=== PATIENT | male | born 1965 | race Caucasian/White ===

== ENCOUNTER 2023-01-20 12:44 | Inpatient (IN) | payer OTHER ==
[~2023-01-20] VITALS: Ht 182.9 cm; Wt 119.0 kg
[2023-01-20 12:49] VITALS: BP_SYST 159; PULSE 99; RESP 22; TEMP 98.3; O2SAT 95
[2023-01-20 13:10] LABS: BASOPHILS # (AUTO) 0.1 K/uL (0.0-0.2); BASOPHILS % (AUTO) 1.1 % (0.0-2.0); EOSINOPHILS # (AUTO) 0.2 K/uL (0.0-0.4); EOSINOPHILS % (AUTO) 2.4 % (0.0-4.0); HEMATOCRIT 46.7 % (36-54); HEMOGLOBIN 15.7 g/dL (14.0-18.0); LYMPHOCYTES # (AUTO) 1.6 K/uL (1.0-5.5); LYMPHOCYTES % (AUTO) 17.6 % (20.5-51.5); MEAN CORPUSCULAR HEMOGLOBIN 29 pg (27-31); MEAN CORPUSCULAR HGB CONC 34 % (32-36); MEAN CORPUSCULAR VOLUME 87 fL (79.0-98.0); MONOCYTES # (AUTO) 0.8 K/uL (0.0-1.0); MONOCYTES % (AUTO) 9.1 % (1.7-9.3); NEUTROPHILS # (AUTO) 6.5 K/uL (1.8-7.7); NEUTROPHILS % (AUTO) 69.8 % (40.0-70.0); PLATELET COUNT (AUTO) 203 K/uL (130-430); RED BLOOD CELL COUNT(AUTO) 5.36 MIL/uL (4.2-6.2); RED CELL DISTRIBUTION WIDTH 13.8 % (9.0-15.0); WHITE BLOOD COUNT (AUTO) 9.3 K/uL (4.8-10.8)
[2023-01-20 13:28] LABS: ANION GAP 10 (5-15); CALCIUM 7.8 mg/dL (8.4-11.0); CARBON DIOXIDE 25 mmol/L (23-29); CHLORIDE 104 mmol/L (98-107); CREATININE 0.93 mg/dL (0.55-1.30); GFR AFRICAN AMERICAN 108 mL/min (>90); GLUCOSE 93 mg/dL (74-106); POTASSIUM 3.7 mmol/L (3.5-5.1); SODIUM SERUM 139 mmol/L (136-145); UREA NITROGEN, BLOOD 14 mg/dL (8-21)
[2023-01-20 13:32] LABS: GFR NON AFRICAN-AMERICAN 89 mL/min (>90)
[2023-01-20 13:35] LABS: ALANINE AMINOTRANSFERASE 16 U/L (12-78); ALBUMIN 3.4 g/dL (3.4-4.8); ASPARTATE AMINOTRANSFERASE 16 U/L (10-37); TOTAL BILIRUBIN 0.5 mg/dL (0.0-1.0); TOTAL PROTEIN, SERUM 6.8 g/dL (6.4-8.3)
[2023-01-20] MEDS ORDERED: NITROGLYCERIN 1 INCH (GM) OINT. TP ONE (14:00)
[2023-01-20] MEDS ORDERED: FUROSEMIDE 40 MG/4 ML VIAL IVP ONE (14:00)
[2023-01-20] MEDS ORDERED: ACETAMINOPHEN 500 MG TABLET PO PRN (14:45)
[2023-01-20] MEDS ORDERED: NITROGLYCERIN 0.4 MG TAB.SUBL SL PRN (14:45)
[2023-01-20] MEDS ORDERED: INSULIN REGULAR, HUMAN 100 UNITS/ML, 3 ML VIAL (humuLIN R) SUBCUT PRN (14:45)
[2023-01-20] MEDS ORDERED: ONDANSETRON HCL 4 MG/2 ML VIAL IVP PRN (14:45)
[2023-01-20] MEDS ORDERED: hydrALAZINE HCL 20 MG/ML VIAL IVP PRN (14:45)
[2023-01-20] MEDS ORDERED: HYDR2TAB4 PO ×2 (18:17→18:21)
[2023-01-20] MEDS ORDERED: SULF500T60 PO (18:17)
[2023-01-20] MEDS ORDERED: AMLO5TAB92 PO (18:17)
[2023-01-20] MEDS ORDERED: TAMS-11 PO (18:17)
[2023-01-20] MEDS ORDERED: GABA-531 PO ×2 (18:17→18:21)
[2023-01-20] MEDS ORDERED: TIOT4MIS3 INH (18:17)
[2023-01-20] MEDS ORDERED: LEVO150C2 PO (18:17)
[2023-01-20] MEDS ORDERED: TIZA-198 PO (18:17)
[2023-01-20] MEDS ORDERED: OMEP40CA20 PO (18:17)
[2023-01-20] MEDS ORDERED: ALBMDI INH (18:23)
[2023-01-20 20:00] VITALS: BP_SYST 141; PULSE 85; RESP 18; TEMP 98; O2SAT 98
[2023-01-20] MEDS: hydrALAZINE HCL 25 MG TABLET PO SCH (21:00)
[2023-01-20] MEDS: FUROSEMIDE 20 MG/2 ML VIAL IVP SCH (21:00)
[2023-01-20] MEDS ORDERED: GABAPENTIN 300 MG CAPSULE PO ONE (23:15)
[2023-01-20] MEDS ORDERED: ZOLPIDEM TARTRATE 5 MG TABLET PO ONE (23:15)
[2023-01-20] MEDS ORDERED: HYDROmorphone 2 MG TAB PO ONE (23:15)
[2023-01-20] MEDS ORDERED: OMEPRAZOLE Non-Formulary 20 MG CAPSULE.DR PO ONE (23:15)
[2023-01-20] MEDS ORDERED: tiZANidine HCL 4 MG TABLET PO ONE (23:15)
[2023-01-21] VITALS: BP_SYST 135; PULSE 76; RESP 18; TEMP 98.2; O2SAT 99
[2023-01-21] MEDS ORDERED: LEVOTHYROXINE SODIUM 0.025 MG TABLET PO SCH (07:00)
[2023-01-21 08:00] VITALS: BP_SYST 144; PULSE 85; RESP 18; TEMP 97.3; O2SAT 95
[2023-01-21] MEDS ORDERED: TAMSULOSIN HCL 0.4 MG CAP PO SCH (09:00)
[2023-01-21] MEDS ORDERED: PANTOPRAZOLE SODIUM 40 MG TAB PO SCH (09:00)
[2023-01-21] MEDS ORDERED: GABAPENTIN 300 MG CAPSULE PO SCH (09:00)
[2023-01-21] MEDS ORDERED: sulfaSALAzine 500 MG TABLET PO SCH (09:00)
[2023-01-21] MEDS ORDERED: ASPIRIN 81 MG TABLET(ECOTRIN) PO ONE (09:00)
[2023-01-21] MEDS ORDERED: LEVOTHYROXINE SODIUM PO SCH (09:00)
[2023-01-21] MEDS: FUROSEMIDE 20 MG/2 ML VIAL IVP SCH (09:06)
[2023-01-21] MEDS: hydrALAZINE HCL 25 MG TABLET PO SCH (09:07)
[2023-01-21 09:20] LABS: THYROID STIMULATING HORMONE 1.61 uIu/mL (0.34-4.82)
[2023-01-21 10:44] VITALS: BP_SYST 137; PULSE 88; RESP 20; TEMP 97.5; O2SAT 95
[2023-01-21] MEDS ORDERED: OMEPRAZOLE Non-Formulary 20 MG CAPSULE.DR PO SCH (11:30)
[2023-01-21 12:38] VITALS: BP_SYST 144; PULSE 88; O2SAT 95
[2023-01-21] MEDS ORDERED: IPRATROPIUM/ALBUTEROL SULFATE 3 ML AMPUL.NEB (DUONEB) INH SCH (13:00)
[2023-01-22] MEDS ORDERED: LEVOTHYROXINE SODIUM 0.15 MG TABLET PO SCH (07:00)
== END 2023-01-21 11:00 | disposition home or self-care (01) | DRG 313 ==
LOC: SED 12:44 → STU 15:00
PROVIDERS: ADMIT Internal Medicine; ATTEND Internal Medicine
DX: R07.89 Other chest pain (principal); J98.11 Atelectasis; I11.0 Hypertensive heart disease with heart failure; E66.01 Morbid (severe) obesity due to excess calories; N40.0 Benign prostatic hyperplasia without lower urinary tract symptoms; F17.200 Nicotine dependence, unspecified, uncomplicated; J44.9 Chronic obstructive pulmonary disease, unspecified; I50.9 Heart failure, unspecified; E11.40 Type 2 diabetes mellitus with diabetic neuropathy, unspecified; G89.4 Chronic pain syndrome; M54.9 Dorsalgia, unspecified; E89.0 Postprocedural hypothyroidism; Z68.35 Body mass index [BMI] 35.0-35.9, adult; Z79.899 Other long term (current) drug therapy
CPT/HCPCS: 36415; 71045; 80053; 80061; 82962; 83037; 83880; 84443; 84484; 85025; 93005; 93306; 96374; 99285; G0378; J0360; J1940